=== PATIENT | male | born 1965 | race Caucasian/White ===

== ENCOUNTER 2020-11-04 15:31 | Outpatient (CLI) | payer OTHER, SELFPAY ==
[2020-11-06 19:31] LABS: SARS-CoV-2 RNA PCR Negative
== END 2020-11-04 15:32 | disposition home or self-care (01) ==
LOC: CHSLAB 15:38
PROVIDERS: PCP Family Medicine; Visit Provider Family Medicine
DX: Z20.822 Contact with and (suspected) exposure to COVID-19 (principal)
CPT/HCPCS: C9803; U0003

== ENCOUNTER 2021-03-29 08:08 | Outpatient (RCR) | payer OTHER, SELFPAY ==
--- NOTE | 2021-03-29 13:31 | PCPTNOTE ---
On 03/29/21, the student, [Ro Mcfarlane, SPT], provided care and completed [employer] documentation on this patient. I have reviewed the student's documentation and agree with the findings.
--- NOTE | 2021-03-29 13:32 | PTOPEVAL ---
Thank you for referring Pavan Mchugh to [facility].? The patient is scheduled to be seen for therapy? ____x/week for ___ weeks. Please review, sign, date and return this plan of care ANTHONY. I agree with and certify that the following plan of care is medically necessary. Referring Physician Date Admitting Provider: Attending Provider: TUCKER NUNEZ Referring Provider: PhuongPT Outpatient Evaluation Start: 03/29/21 08:08 Freq: Status: Active Protocol: Document 03/29/21 08:15 MS (Rec: 03/29/21 09:40 MS [id number]) Therapy Assessment Status Assessment Status Assessment Status Evaluation Evaluation Information Problem Diagnosis bunyon osteotomy Right Onset 02/08/21 Subjective Information Pavan Mchugh is a 55 yo male who Query Text:As Reported By Patient/ is 7 weeks s/p R bunyon Family osteotomy on 02/08/21. He reports that ambulation causes the largest increase in pain. Pain is primarily felt on the plantar surface surface of his 1st MTP joint during stance and ambulation. He also experiences discomfort when kneeling and extending his toes into the ground. He is currently not taking any pain medications. 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 Enjoys fishing and performing work around the home prior to surgery. Hopes to start working again once medically released. May go back to light duty work prior to medical release. Pain Assessment Pain Scale Pain Scale Used Numeric (1 - 10) Self Report Pain Assessment Right Foot/Feet Reported Pain Level 2 Lowest Pain Intensity 1 Greatest Pain Intensity 4 Pain Score Pain Score 2: Self Report Interventions Used Interventions Used By Clinicians Activity or ADL's,Education, Exercise Lower Extremity Range of Motion General Lower Extremity Range of Motion Gross Lower Extremity Range of Motion L ankle AROM: DF 10 , DF 5 w Comments knee ext, PF 60 R ankle AROM: DF 10, DF 0 w knee ext, PF 55
--- NOTE | 2021-04-19 08:09 | PCPTNOTE ---
On 04/19/21, the student, [Ro Mcfarlane, SPT], provided care and completed [employer] documentation on this patient. I have reviewed the student's documentation and agree with the findings.
--- NOTE | 2021-04-26 10:10 | PCPTNOTE ---
On 04/26/21, the student, [Ro Mcfarlane, SPT], provided care and completed [employer] documentation on this patient. I have reviewed the student's documentation and agree with the findings.
== END 2021-06-27 23:59 | disposition home or self-care (01) ==
LOC: CHSPT 08:08
PROVIDERS: PCP Family Medicine
DX: M21.611 Bunion of right foot (principal)
CPT/HCPCS: 97110; 97140; 97161

== ENCOUNTER 2022-10-04 12:43 | Outpatient (CLI) | payer OTHER, SELFPAY ==
--- NOTE | ~2022-10-04 | XR_ITS ---
EXAMINATION: XR chest 2V 10/04/2022 13:22 INDICATION: Acute cough PROCEDURE: 2 view chest COMPARISON: 05/24/2010 FINDINGS: The lungs are clear. The cardiomediastinal silhouette is within normal limits. There are no pleural effusions. There is no pneumothorax suspected. IMPRESSION: 1: NO ACUTE CARDIOPULMONARY DISEASE. Reviewed, dictated and finalized at location A. EXPERT
[2022-10-04 13:39] LABS: SARS-CoV-2 RNA PCR Negative (Negative)
== END 2022-10-04 12:44 | disposition home or self-care (01) ==
LOC: CHSLAB 12:46
PROVIDERS: PCP Family Medicine; Visit Provider Family Medicine
DX: R05.1 Acute cough (principal); Z20.822 Contact with and (suspected) exposure to COVID-19
CPT/HCPCS: 71046; U0003; U0005